=== PATIENT | male | born 1935 | race Caucasian/White ===

== ENCOUNTER → 2017-04-20 | Day surgery (SDC) | payer MEDICARE ==
[2017-04-19 12:24] LABS: BASOPHILS # (AUTO) 0.1 (0.0-0.1); BASOPHILS % 0.6 % (0.0-1.0); EOSINOPHILS # (AUTO) 0.1 (0.0-0.4); EOSINOPHILS % 1.5 % (0.0-6.0); HEMATOCRIT 38.5 % (38.2-49.6); HEMOGLOBIN 12.6 g/dL (14.0-18.0); LYMPHOCYTES # (AUTO) 2.1 (1.0-3.2); LYMPHOCYTES % 25.9 % (18.0-39.1); MEAN CORPUSCULAR HEMOGLOBIN 31.3 pg (28-32); MEAN CORPUSCULAR HGB CONC 32.7 g/dL (31-35); MEAN CORPUSCULAR VOLUME 95.8 fL (81-99); MONOCYTES # (AUTO) 0.7 (0.2-0.8); NEUTROPHILS # (AUTO) 5.2 (2.1-6.9); NEUTROPHILS % 62.5 % (38.7-80.0); PLATELET COUNT 248 x10e3/uL (140-360); RED BLOOD COUNT 4.02 x10e6/uL (4.3-5.7); RED CELL DISTRIBUTION WIDTH 13.2 % (11.7-14.4)
[2017-04-19 12:40] LABS: ANION GAP 10.7 mmol/L (8-16); CALCIUM 8.8 mg/dL (8.4-10.2); CREATININE, SERUM 1.27 mg/dL (0.72-1.25); POTASSIUM 4.7 mmol/L (3.5-5.1)
--- NOTE | 2017-04-19 12:45 | Diagnostic Imaging Report ---
PROCEDURE:CHEST 2 VIEWS TECHNIQUE:PA and lateral chest totaling 3 radiographs INDICATION:Preoperative evaluation for foot surgery COMPARISON:None. FINDINGS: Mild symmetric hyperinflation with relative paucity of interstitial markings in the upper lung zones. Lungs are otherwise clear and symmetrically inflated. No pleural effusions. Normal heart size, mediastinal silhouette and central vasculature. Intact skeleton with age expected degenerative disc disease. CONCLUSION: Findings of emphysema without acute abnormality. Dictated by: Cody Esparza M.D. on 04/19/2017 at 12:54 Electronically approved by: Cody Esparza M.D. on 04/19/2017 at 12:54
[~2017-04-20] MED LIST: ASPIRIN81 MG PO; ATORVASTATIN CA20 MG PO; BACTRIM DS TAB1 EACH PO; BUPIVACAINE HCL 0.5% 10ML MPF VIAL INJ ONE; CLINDAMYCIN PHOS 900MG/ D5W 50 50 ML IV ONE; CYCLOBENZAPRINE5 MG PO; DEXAMETHASONE SOD PHOS INJ 4 MG/ML VIAL ONE; EPHEDRINE SULFATE INJ 50 MG/10 ML SYR ONE; FENTANYL CITRATE/PF 100MCG/2 ML INJ ONE; FLOMAX0.4 MG PO; IRBESARTAN75 MG PO; LEVOCETIRIZINE D5 MG PO; LIDOCAINE HCL 2% LOCAL INJ 5 ML SDV VIAL INJ ONE; METFORMIN HCL500 MG PO; METOPROLOL SUCC25 MG PO; NEOSTIGMINE 1 MG/ML 10ML VIAL ONE; NEXIUM40 MG PO; NITROSTAT0.3 MG SL; ONDANSETRON HCL INJ 2 MG/ML VIAL ONE; PRADAXA150 MG PO; PROPOFOL IV EMULSION 10 MG/ML 20 ML VIAL ONE; PROZAC20 MG PO; SEVOFLURANE INHAL SOLN 250 ML PEN BTL ONE; TOPAMAX100 MG PO; ULTRAM50 MG PO; UROCIT-K15 MEQ PO; VESICARE10 MG PO; VITAMIN D35000 UNI1 PO
--- OUTSIDE RECORDS SUMMARY | 2017-04-20 06:36 | XMS REPORT ---
Author [facility] Address Unknown Phone Unavailable Care Team Providers Care Notereader Name Role Phone JOSSELINE HOLLIS Unavailable Unavailable Problems This patient has no known problems. Allergies, Adverse Reactions, Alerts This patient has no known allergies or adverse reactions. Medications This patient has no known medications. Results Test Description Test Time Test Comments Text Results Atomic Results Result Comments CHEST 2 VIEWS [place] [id number] [place] [address] Patient Name: ANDRESSA DILLON MR #: [id number] : 1935 Age/Sex: 82/M Req # : [id number] Adm Physician: Ordered by: JOSSELINE HOLLIS DPM Report #: [id number] Location: OR Room/Bed: Procedure: [id number] DX/CHEST 2 VIEWS Exam Date: 04/19/17 Exam Time: 1210 REPORT STATUS: Signed PROCEDURE: CHEST 2 VIEWS TECHNIQUE: PA and lateral chest totaling 3 radiographs INDICATION: Preoperative evaluation for foot surgery COMPARISON: None. FINDINGS: Mild symmetric hyperinflation with relative paucity of interstitial markings in the upper lung zones. Lungs are otherwise clear and symmetrically inflated. No pleural effusions. Normal heart size, mediastinal silhouette and central vasculature. Intact skeleton with age expected degenerative disc disease. CONCLUSION: Findings of emphysema without acute abnormality. Dictated by: Savannah Esparza M.D. on 04/19/2017 at 12:54 Electronically approved by: Savannah Esparza M.D. on 04/19/2017 at 12:54 Dictated By: SAVANNAH ESPARZA MD [id number] Transcribed By: MAGALI on 04/19/17 1252 COPY TO: JOSSELINE HOLLIS DPM
--- NOTE | 2017-04-20 16:35 | Operative Report ---
DATE OF PROCEDURE: April 20, 2017 LOCATION: [facility] PREOPERATIVE DIAGNOSES 1. Rigidly contracted hammertoes, 2nd digit, right foot. 2. 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 POSTOPERATIVE DIAGNOSES 1. Rigidly contracted hammertoes, 2nd digit, right foot. 2. 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 TITLE OF OPERATION 1. Arthroplasty 2nd digit, right foot. 2. Debridement of ulcer 2nd digit, left foot, with application of MiMedx EpiFix graft. PROCEDURE IN DETAIL: The patient was taken to the operating room in a mildly sedated state and placed upon the operating table in supine position. Following induction of general anesthetic, the left lower extremity was elevated to 60 degrees to exsanguinate for inflating the pneumatic ankle tourniquet to 250 mmHg to create hemostasis. Left lower extremity was placed upon the operating table prior to performing the following procedure. Foot had been prepped and draped in the usual aseptic manner. The 2nd digit ulcerated area was covered with a digital condom to the separate the chronic ulceration from the dorsal aspect of the digit. The incision was made at the dorsal aspect of the proximal interphalangeal joint of the 2nd digit for arthroplasty 2nd digit left foot. Incision was deepened via sharp and blunt dissection onto the level of the dorsal capsular structure. Care was taken to identify and retract all vital structures encountered. Transverse tenotomy was performed and the head of the proximal phalanx was resected utilizing an oscillating saw and irrigated with copious amounts of sterile saline solution. Deep closure was 3-0 Vicryl, the extensor tendon was remodeled and shortened, and the skin was closed with 3-0 Vicryl and 4-0 nylon. Attention was then directed to the distal aspect of the digit where the condom was removed and the debridement full-thickness through skin and subcutaneous tissue of wound, which measured approximately 2 cm in circumference was exposed. The EpiFix graft measuring 2 cm x 3 cm was cut in half and applied in double layer overlying the distal ulceration after debridement. This was stapled around the edges to hold it in place and drizzled with saline for better adherence. The appropriate mildly compressive dressings were applied. Release of pneumatic thigh tourniquet showed a normal hyperemic flush to all digits of the left foot and the patient left the operating room with vital signs stable in apparent satisfactory condition, having tolerated both the anesthetic and procedure very well. Job#: [id number] SAK
== END | disposition home or self-care (01) ==
LOC: OR 06:34
PROVIDERS: ATTEND Podiatrist Foot Surgery
DX: L97.522 Non-pressure chronic ulcer of other part of left foot with fat layer exposed (principal); M20.42 Other hammer toe(s) (acquired), left foot; M19.90 Unspecified osteoarthritis, unspecified site; E78.5 Hyperlipidemia, unspecified; I48.91 Unspecified atrial fibrillation; N20.0 Calculus of kidney; J43.9 Emphysema, unspecified; G47.33 Obstructive sleep apnea (adult) (pediatric); K21.9 Gastro-esophageal reflux disease without esophagitis; E11.22 Type 2 diabetes mellitus with diabetic chronic kidney disease; I12.9 Hypertensive chronic kidney disease with stage 1 through stage 4 chronic kidney disease, or unspecified chronic kidney disease; N18.9 Chronic kidney disease, unspecified; Z01.810 Encounter for preprocedural cardiovascular examination; Z01.812 Encounter for preprocedural laboratory examination; Z01.818 Encounter for other preprocedural examination; Z79.82 Long term (current) use of aspirin
CPT/HCPCS: 15275; 28285; 36415 ×2; 71046; 80048; 82948; 85025; 93005; J2001; J2405; J2710; Q4131; 76000; J1100

== ENCOUNTER → 2017-05-02 | Outpatient (CLI) | payer MEDICARE ==
[~2017-05-02] MED LIST changes: -BUPIVACAINE HCL 0.5% 10ML MPF VIAL INJ ONE; -CLINDAMYCIN PHOS 900MG/ D5W 50 50 ML IV ONE; -DEXAMETHASONE SOD PHOS INJ 4 MG/ML VIAL ONE; -EPHEDRINE SULFATE INJ 50 MG/10 ML SYR ONE; -FENTANYL CITRATE/PF 100MCG/2 ML INJ ONE; +IOPAMIDOL 370 MG/ML 200 ML INFUS..BTL INJ ONE; -LIDOCAINE HCL 2% LOCAL INJ 5 ML SDV VIAL INJ ONE; -NEOSTIGMINE 1 MG/ML 10ML VIAL ONE; -ONDANSETRON HCL INJ 2 MG/ML VIAL ONE; -PROPOFOL IV EMULSION 10 MG/ML 20 ML VIAL ONE; -SEVOFLURANE INHAL SOLN 250 ML PEN BTL ONE; +SODIUM CHLORIDE 0.9% 250ML 250 ML ONE; +SODIUM CHLORIDE 0.9% 500ML 500 ML ONE; +SODIUM CHLORIDE 0.9% 50ML 50 ML ONE
[2017-05-02 09:35] LABS: CREATININE, SERUM 1.26 mg/dL (0.72-1.25)
--- NOTE | 2017-05-02 11:09 | Diagnostic Imaging Report ---
EXAM: CTA Abdomen and Pelvis WITH CONTRAST. DATE: 05/02/2017 8:33 AM INDICATION: COMPARISON: None TECHNIQUE: CT angiogram of the abdomen and pelvis was obtained after the administration of IV contrast. Prospective gating was performed. Images reviewed in the axial, coronal, and sagittal planes. 3D reconstructions performed on off-line workstation. IV Contrast: 100 mL Isovue-370. Total DLP: 756 mGy*cm Est. Eff. Dose DLP x 0.015 x size factor mSv (CTDIvol has been reviewed and is below limits set by [facility]). FINDINGS: VASCULAR: Abdominal Aorta Mesenteric Segment: 28 mm. Abdominal Aorta Just Below Renal Arteries: 22 mm. Mid Infrarenal Abdominal Aorta: 33 mm. Abdominal Aortal at Bifurcation: 29 mm. Mesenteric Arteries: Mild atherosclerotic changes present at origin and scattered throughout celiac axis and SMA. Single bilateral renal arteries patent with mild left and moderate right atherosclerotic changes origin. MARU patent. RCIA: 12 mm. LCIA: 12 mm. Internal Iliac Arteries: Patent. Other: Moderate atherosclerotic changes present in iliac arteries. Abdomen: Lung Bases: Atelectasis. Solid Organs: Hypodensity left hepatic lobe, statistically cyst. Cholecystectomy clips. Solid organs otherwise unremarkable except for pancreatic atrophy. Upper GI Tract: Small hiatal hernia. Gastric decompression limits evaluation. No small bowel obstructive changes. Lymph Nodes: No suspicious adenopathy. Other: Mild aortic atherosclerotic plaque. No dissection. Pelvis: Bladder: Unremarkable. Other: Prosthetic seeds. Colon: No acute colonic findings. Appendectomy changes. Bones: Advanced degenerative changes spine. IMPRESSION: 1. 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 No dissection identified. 2. Other findings as above. Signed by: Dr. Osmany Agarwal MD on 05/02/2017 11:06 AM
== END ==
LOC: CT 08:23
PROVIDERS: ATTEND Internal Medicine Interventional Cardiology
DX: I72.8 Aneurysm of other specified arteries (principal)
CPT/HCPCS: 36415; 74174; 82565; 84520; J7040; J7050; Q9967